=== PATIENT | female | born 1970 | race American Indian/Alaskan Native ===

== ENCOUNTER 2019-03-14 07:56 | Inpatient (IN) | payer SELFPAY ==
[2019-03-14] MEDS ORDERED: NORMODYNE IV ONE (08:24)
--- NOTE | 2019-03-14 08:59 | XRay Report ---
CHEST 1 VIEW INDICATION: Chest Pain. COMPARISON: None. FINDINGS: Support devices: None. Heart: Within normal limits. Left ventricular contour. Pulmonary vasculature: Normal. Lungs/Pleura: The lungs are normally expanded and clear. No pleural effusion. Additional findings: Scoliosis and degenerative change in the thoracic spine. IMPRESSION: 1. No acute findings. Signer Name: Raheel Paulino MD Signed: 03/14/2019 8:55 AM Workstation Name: [id number]
[2019-03-14 09:12] LABS: Basophils # (Auto) 0.1 K/mm3 (0.0-0.1); Basophils % (Auto) 0.5 % (0.0-1.8); Eosinophils % (Auto) 0.1 % (0.0-4.3); Hematocrit 39.1 % (30.3-42.9); Hemoglobin 13.5 gm/dl (10.1-14.3); Lymphocytes # (Auto) 1.6 K/mm3 (1.2-5.4); Lymphocytes % (Auto) 14.4 % (13.4-35.0); Mean Corpuscular HGB Conc 35 % (30-34); Mean Corpuscular Volume 86 fl (79-97); Monocytes # (Auto) 0.4 K/mm3 (0.0-0.8); Monocytes % (Auto) 3.5 % (0.0-7.3); Platelet Count 239 K/mm3 (140-440); Red Blood Count 4.57 M/mm3 (3.65-5.03); Red Cell Distribution Width 14.4 % (13.2-15.2)
[2019-03-14 09:27] LABS: Alanine Aminotransferase 15 units/L (7-56); Albumin 3.7 g/dL (3.9-5); BUN/Creatinine Ratio 14; Blood Urea Nitrogen 14 mg/dL (7-17); Calcium 8.6 mg/dL (8.4-10.2); Hemolysis Index 3
[2019-03-14 09:28] LABS: Bilirubin,Direct < 0.2 mg/dL (0-0.2)
[2019-03-14 09:29] LABS: INR 1.12 (0.87-1.13)
[2019-03-14 09:30] LABS: Partial Thromboplastin Time 26.9 Sec. (24.2-36.6)
[2019-03-14 09:38] LABS: HDL Cholesterol 61 mg/dL (40-59); LDL Cholesterol,Direct 78 mg/dL (50-130)
--- NOTE | 2019-03-14 09:51 | Emergency Department Report ---
ED General Adult HPI - General Chief complaint: Dyspnea/Respdistress Stated complaint: SOB/CHEST PAIN Time Seen by Provider: 03/14/19 08:18 Source: patient, EMS Mode of arrival: Stretcher Limitations: No Limitations - History of Present Illness Initial comments: 48-year-old female complains of dyspnea mostly on exertion. She states she occasionally has chest discomfort which does not radiate. She is mostly here because she realizes that her blood pressure is extremely elevated and that she is noncompliant with medication. She has not had any blood pressure medicine available for an unquantified. Of time. She has not seen a doctor also for an unquantified. At time. She denies focal neurological change and headache. She is not actively short of breath at rest on my encounter. She does not complain of chest pain additionally on my encounter. She is actually already requesting discharge on my initial encounter despite her extraordinary uncontrolled hypertension. I initially explained that is probably not likely. -: unknown Location: chest Radiation: non-radiation Severity scale (0 -10): 6 Quality: other (pressure or tightness) Consistency: intermittent, now resolved Improves with: none Worsens with: none Associated Symptoms: denies other symptoms, shortness of breath - Related Data Allergies Allergy/AdvReac Type Severity Reaction Status Date / Time No Known Allergies Allergy Unverified 03/14/19 08:17 ED Review of Systems ROS: Stated complaint: SOB/CHEST PAIN Other details as noted in HPI Constitutional: denies: chills, fever Eyes: denies: eye pain, eye discharge, vision change ENT: denies: ear pain, throat pain Respiratory: shortness of breath. denies: cough, wheezing Cardiovascular: chest pain. denies: palpitations Endocrine: no symptoms reported Gastrointestinal: denies: abdominal pain, nausea, diarrhea Genitourinary: denies: urgency, dysuria, discharge Musculoskeletal: denies: back pain, joint swelling, arthralgia Skin: denies: rash, lesions Neurological: denies: headache, weakness, paresthesias Psychiatric: denies: anxiety, depression Hematological/Lymphatic: denies: easy bleeding, easy bruising ED Past Medical Hx - Past Medical History Hx Hypertension: Yes - Surgical History Past Surgical History?: No - Social History Smoking Status: Never Smoker Substance Use Type: Alcohol ED Physical Exam - General Limitations: No Limitations General appearance: alert, in no apparent distress - Head Head exam: Present: atraumatic, normocephalic - Eye Eye exam: Present: normal appearance. Absent: scleral icterus - ENT ENT exam: Present: mucous membranes moist - Neck Neck exam: Present: normal inspection - Respiratory Respiratory exam: Present: normal lung sounds bilaterally. Absent: respiratory distress - Cardiovascular Cardiovascular Exam: Present: regular rate, normal rhythm. Absent: systolic murmur, diastolic murmur, rubs, gallop - GI/Abdominal GI/Abdominal exam: Present: soft, normal bowel sounds. Absent: distended, tenderness, guarding, rebound - Extremities Exam Extremities exam: Present: normal inspection, pedal edema (trace and trace pretibial). Absent: calf tenderness - Back Exam Back exam: Present: normal inspection - Neurological Exam Neurological exam: Present: alert, oriented X3, CN II-XII intact. Absent: motor sensory deficit - Psychiatric Psychiatric exam: Present: normal affect, normal mood - Skin Skin exam: Present: warm, dry, intact, normal color. Absent: rash ED Course Vital Signs 03/14/19 03/14/19 03/14/19 08:21 08:32 09:58 Temperature 98.5 F Pulse Rate 143 H 143 H Respiratory 20 20 Rate Blood Pressure 197/125 197/125 Blood Pressure 197/125 [Left] O2 Sat by Pulse 95 96 Oximetry - Reevaluation(s) Reevaluation #1: She had persistent requests for discharge. She really did not respond to labetalol at all. She was started on Cardene. The need for admission was explained. Finally she agreed. She was admitted to the hospitalist service. 03/14/19 10:38 ED Medical Decision Making - Lab Data Result diagrams: 03/14/19 08:35 03/14/19 08:35 Laboratory Results - last 24 hr 03/14/19 03/14/19 03/14/19 08:35 08:35 08:35 WBC 11.4 H RBC 4.57 Hgb 13.5 Hct 39.1 MCV 86 MCH 30 MCHC 35 H RDW 14.4 Plt Count 239 Lymph % (Auto) 14.4 [place] % (Auto) 3.5 Eos % (Auto) 0.1 Baso % (Auto) 0.5 Lymph # 1.6 [place] # 0.4 Eos # 0.0 Baso # 0.1 Seg Neutrophils % 81.5 H Seg Neutrophils # 9.3 H PT 14.1 INR 1.12 APTT 26.9 Sodium 138 Potassium 3.4 L Chloride 100.9 Carbon Dioxide 20 L Anion Gap 21 BUN 14 Creatinine 1.0 Estimated GFR > 60 BUN/Creatinine Ratio 14 Glucose 186 H Calcium 8.6 Total Bilirubin 0.40 Direct Bilirubin < 0.2 Indirect Bilirubin 0.2 AST 18 ALT 15 Alkaline Phosphatase 48 Troponin T 0.043 H Total Protein 8.6 H Albumin 3.7 L Albumin/Globulin Ratio 0.8 Triglycerides 142 Cholesterol 153 LDL Cholesterol Direct 78 HDL Cholesterol 61 H Cholesterol/HDL Ratio 2.50 - EKG Data -: EKG Interpreted by Me EKG shows normal: sinus rhythm, axis, intervals, QRS complexes Rate: normal - EKG Data Interpretation: nonspecific ST-T wave gabriela, other (for lateral T-wave inversion, somewhat prolonged QT) - Radiology Data Radiology results: report reviewed (no acute findings) Critical Care Time: Yes Critical care time in (mins) excluding proc time.: 40 Critical care attestation.: If time is entered above; I have spent that time in minutes in the direct care of this critically ill patient, excluding procedure time. ED Disposition Clinical Impression: Malignant hypertension Hyperglycemia due to type 2 diabetes mellitus Qualifiers: Diabetes mellitus residential insulin use: without residential use Qualified Code(s): E11.65 - Type 2 diabetes mellitus with hyperglycemia Disposition: DC-09 OP ADMIT IP TO THIS HOSP Is pt being admited?: Yes Does the pt Need Aspirin: Yes Condition: Stable Instructions: Hypertension (ED), Diabetes Mellitus Type 2 in Adults (ED) Time of Disposition: 10:41
[2019-03-14] MEDS ORDERED: CARDENE 50 MG in NACL 0.9% 250ML 230 ML IV SCH (10:00)
[2019-03-14] MEDS ORDERED: APRESOLINE IV PRN ×2 (10:15→11:27)
[2019-03-14] MEDS ORDERED: MORPHINE IV PRN (10:16)
[2019-03-14] MEDS ORDERED: SODIUM CHLORIDE FLUSH SYRINGE 10 ML IV PRN (10:16)
[2019-03-14] MEDS ORDERED: TYLENOL PO PRN (10:16)
[2019-03-14] MEDS ORDERED: ZOFRAN IV PRN (10:16)
--- NOTE | 2019-03-14 10:21 | History and Physical Report ---
History of Present Illness Chief complaint: Shortness of breath History of present illness: 48-year-old woman who presents to the hospital complaining of Shortness of breath. It is associated with palpitations. She had it at rest while in bed, she denies orthopnea, denies PND. States that she has mild pedal edema. She denies chest pain. Denies cough or sputum production. Admits that she has a history of hypertension, she just did not want to be on meds and hasn't taken meds for over a year, hasn't seen a doctor for over a year does not have insurance. Past medical history; hypertension Past surgical history; lap bird and umbilicus hernia repair Social history, denies Tobacco alcohol or illicit drug abuse. Medications and Allergies Allergies Allergy/AdvReac Type Severity Reaction Status Date / Time No Known Allergies Allergy Unverified 03/14/19 08:17 Active Meds: Active Medications Acetaminophen (Tylenol) 650 mg PO Q4H PRN PRN Reason: Pain MILD(1-3)/Fever >100.5/VASQUEZ Enoxaparin Sodium (Lovenox) 40 mg SUB-Q QDAY JANICE Hydralazine HCl (Apresoline) 10 mg IV Q4HR PRN PRN Reason: BP >160/100 Nicardipine HCl 50 mg/ Sodium (Chloride) 250 mls @ 25 mls/hr IV TITR JANICE; Protocol Last Admin: 03/14/19 10:07 Dose: 5 mg/hr, 25 mls/hr Documented by: Morphine Sulfate (Morphine) 2 mg IV Q4H PRN PRN Reason: Pain, Moderate (4-6) Nifedipine (Procardia Xl) 60 mg PO Q12HR JANICE Ondansetron HCl (Zofran) 4 mg IV Q8H PRN PRN Reason: Nausea And Vomiting Potassium Chloride (K-Dur) 40 meq PO ONCE ONE Stop: 03/14/19 10:16 Sodium Chloride (Sodium Chloride Flush Syringe 10 Ml) 10 ml IV BID JANICE Sodium Chloride (Sodium Chloride Flush Syringe 10 Ml) 10 ml IV PRN PRN PRN Reason: LINE FLUSH Review of Systems All systems: negative Constitutional: no weight loss, no fatigue Ears, nose, mouth and throat: no ear pain Cardiovascular: palpitations, edema, no chest pain, no orthopnea, no rapid/irregular heart beat Respiratory: no cough Gastrointestinal: no abdominal pain Rectal: no pain Musculoskeletal: no neck stiffness Integumentary: no rash Neurological: no head injury Psychiatric: no anxiety Endocrine: no cold intolerance Hematologic/Lymphatic: no easy bruising Allergic/Immunologic: no urticaria Exam - Constitutional Vitals: Temp Pulse Resp BP Pulse Ox 98.5 F 143 H 20 197/125 96 03/14/19 08:21 03/14/19 08:32 03/14/19 09:58 03/14/19 08:32 03/14/19 09:58 General appearance: Present: no acute distress, well-nourished - EENT Eyes: Present: PERRL ENT: hearing intact, clear oral mucosa - Neck Neck: Present: supple, normal ROM - Respiratory Respiratory effort: normal Respiratory: bilateral: CTA - Cardiovascular Heart Sounds: Present: S1 & S2. Absent: rub, click - Extremities Extremities: pulses symmetrical, No edema Peripheral Pulses: within normal limits - Abdominal General gastrointestinal: Present: soft, non-tender, non-distended, normal bowel sounds Female genitourinary: Present: normal - Integumentary Integumentary: Present: clear, warm, dry - Musculoskeletal Musculoskeletal: gait normal, strength equal bilaterally - Psychiatric Psychiatric: appropriate mood/affect, intact judgment & insight - Neurologic Neurologic: CNII-XII intact, moves all extremities Results - Labs CBC & Chem 7: 03/14/19 08:35 03/14/19 08:35 Labs: Laboratory Last Values WBC 11.4 K/mm3 (4.5-11.0) H 03/14/19 08:35 RBC 4.57 M/mm3 (3.65-5.03) 03/14/19 08:35 Hgb 13.5 gm/dl (10.1-14.3) 03/14/19 08:35 Hct 39.1 % (30.3-42.9) 03/14/19 08:35 MCV 86 fl (79-97) 03/14/19 08:35 MCH 30 pg (28-32) 03/14/19 08:35 MCHC 35 % (30-34) H 03/14/19 08:35 RDW 14.4 % (13.2-15.2) 03/14/19 08:35 Plt Count 239 K/mm3 (140-440) 03/14/19 08:35 Lymph % (Auto) 14.4 % (13.4-35.0) 03/14/19 08:35 [place] % (Auto) 3.5 % (0.0-7.3) 03/14/19 08:35 Eos % (Auto) 0.1 % (0.0-4.3) 03/14/19 08:35 Baso % (Auto) 0.5 % (0.0-1.8) 03/14/19 08:35 Lymph # 1.6 K/mm3 (1.2-5.4) 03/14/19 08:35 [place] # 0.4 K/mm3 (0.0-0.8) 03/14/19 08:35 Eos # 0.0 K/mm3 (0.0-0.4) 03/14/19 08:35 Baso # 0.1 K/mm3 (0.0-0.1) 03/14/19 08:35 Seg Neutrophils % 81.5 % (40.0-70.0) H 03/14/19 08:35 Seg Neutrophils # 9.3 K/mm3 (1.8-7.7) H 03/14/19 08:35 PT 14.1 Sec. (12.2-14.9) 03/14/19 08:35 INR 1.12 (0.87-1.13) 03/14/19 08:35 APTT 26.9 Sec. (24.2-36.6) 03/14/19 08:35 Sodium 138 mmol/L (137-145) 03/14/19 08:35 Potassium 3.4 mmol/L (3.6-5.0) L 03/14/19 08:35 Chloride 100.9 mmol/L (98-107) 03/14/19 08:35 Carbon Dioxide 20 mmol/L (22-30) L 03/14/19 08:35 Anion Gap 21 mmol/L 03/14/19 08:35 BUN 14 mg/dL (7-17) 03/14/19 08:35 Creatinine 1.0 mg/dL (0.7-1.2) 03/14/19 08:35 Estimated GFR > 60 ml/min 03/14/19 08:35 BUN/Creatinine Ratio 14 % 03/14/19 08:35 Glucose 186 mg/dL (65-100) H 03/14/19 08:35 Calcium 8.6 mg/dL (8.4-10.2) 03/14/19 08:35 Total Bilirubin 0.40 mg/dL (0.1-1.2) 03/14/19 08:35 Direct Bilirubin < 0.2 mg/dL (0-0.2) 03/14/19 08:35 Indirect Bilirubin 0.2 mg/dL 03/14/19 08:35 AST 18 units/L (5-40) 03/14/19 08:35 ALT 15 units/L (7-56) 03/14/19 08:35 Alkaline Phosphatase 48 units/L (35-129) 03/14/19 08:35 Troponin T 0.043 ng/mL (0.00-0.029) H 03/14/19 08:35 Total Protein 8.6 g/dL (6.3-8.2) H 03/14/19 08:35 Albumin 3.7 g/dL (3.9-5) L 03/14/19 08:35 Albumin/Globulin Ratio 0.8 % 03/14/19 08:35 Triglycerides 142 mg/dL (2-149) 03/14/19 08:35 Cholesterol 153 mg/dL (50-199) 03/14/19 08:35 LDL Cholesterol Direct 78 mg/dL (50-130) 03/14/19 08:35 HDL Cholesterol 61 mg/dL (40-59) H 03/14/19 08:35 Cholesterol/HDL Ratio 2.50 % 03/14/19 08:35 - Imaging and Cardiology EKG: image reviewed (sinus tachy) Chest x-ray: image reviewed (No acute findings) Assessment and Plan Assessment and plan: 48-year-old woman admitted for hypertensive emergency Labs show white count 11.4, potassium 3.4, glucose 186 Chest x-ray no acute findings Hypertensive emergency Currently on Cardene drip, continue Cardene drip we will start oral medications with goal of weaning off the drip Hypokalemia Replete, check magnesium Sirs No evidence of infection at this time, obtain UA Hyperglycemia, no history of diabetes, obtain A1c sinus tachycardia check tsh mild pedal edema echo, check tsh, give one dose of lasix DVT prophylaxis; Lovenox and early ambulation VTE prophylaxis?: Chemical Plan of care discussed with patient/family: Yes
[2019-03-14] MEDS ORDERED: BABY ASPIRIN PO ONE (10:47)
[2019-03-14] MEDS ORDERED: ZESTRIL ONE (10:58)
[2019-03-14] MEDS ORDERED: ZESTRIL PO SCH (11:00)
[2019-03-14] MEDS ORDERED: DIOVAN PO SCH (11:00)
[2019-03-14 11:02] LABS: BUN/Creatinine Ratio 13; Blood Urea Nitrogen 13 mg/dL (7-17); Calcium 8.6 mg/dL (8.4-10.2); Hemolysis Index 3
[2019-03-14] MEDS ORDERED: LASIX IV ONE (11:24)
[2019-03-14] MEDS ORDERED: APRESOLINE ONE (11:55)
[2019-03-14] MEDS ORDERED: K-DUR PO ONE (12:00)
[2019-03-14] MEDS ORDERED: PROCARDIA XL PO SCH (12:00)
[2019-03-14] MEDS ORDERED: NACL 0.9% 1000 ML 1,000 ML ONE ×3 (12:26→16:07)
[2019-03-14] MEDS ORDERED: ZOFRAN ONE (12:35)
[2019-03-14] MEDS ORDERED: MORPHINE IV ONE ×2 (13:00)
[2019-03-14] MEDS ORDERED: MORPHINE ONE (13:04)
[2019-03-14] MEDS ORDERED: ATIVAN IV PRN (13:11)
[2019-03-14] MEDS ORDERED: LOVENOX SUB-Q SCH ×2 (14:00)
[2019-03-14] MEDS ORDERED: NACL 0.9% 1000 ML 2,000 ML ONE ×2 (14:01→17:19)
[2019-03-14] MEDS ORDERED: HEPARIN/ 0.45% NACL-25,000 UNIT/500 ML 25,000 UNIT/500 ML BAG ONE (14:13)
[2019-03-14] MEDS ORDERED: SUBLIMAZE IV PRN (14:22)
[2019-03-14] MEDS ORDERED: ARTIFICIAL TEARS OPHTH OINT OU PRN (14:22)
[2019-03-14] MEDS ORDERED: VERSED IV PRN (14:22)
[2019-03-14] MEDS ORDERED: VASELINE LIP THERAPY TP PRN (14:22)
--- NOTE | 2019-03-14 14:26 | Event Note ---
Date: 03/14/19 38-year-old female who I previously had admitted to the hospitalist service on a Cardene drip. This was set to a conservative target of 165 systolic. This was several hours ago; I have not had any further involvement with the care of the patient. Indeed, I have been occupied with other critical care patients. I was called into the room to assist in resuscitative efforts on this patient by nursing staff. 2 other physicians had begun the process initially. I found the patient to the apneic. We began Ambu bag assist and chest compressions. Cardiac monitors showed complexes at about 30. I requested the nurses to give 0.5 of epinephrine while I prepared for intubation. Resuscitation continued while I performed direct laryngoscopy. This was done quickly using a Mac 4 curved blade. A 7.5 Serbian endotracheal tube was immediately placed without difficulty and secured at the 22 cm marsha. The patient's ventilation continued. She was noted to have an improving heart rate. I then inserted and EJ line into her left neck. We gave the patient an additional 1 mg of epinephrine and then resulting in a much improved heart rate and a palpable pulse. A central line insertion was performed by Dr. Dunn in the right femoral region. Patient's admitting physician presented to the bedside. She was noted to be hypertensive at this point. Further management of the patient is deferred to the hospitalist staff. Patient was noted to have spontaneous respirations. Resuscitative events were explained to the patient's family. Nursing requested sedation orders as the patient became agitated. They were directed to give Rocuronium and then a sedation drip depending on the patient's current blood pressure.
[2019-03-14] MEDS ORDERED: LOVENOX SUB-Q ONE (14:30)
[2019-03-14] MEDS ORDERED: HEPARIN IV ONE (14:30)
[2019-03-14] MEDS ORDERED: HEPARIN ONE (14:34)
[2019-03-14] MEDS ORDERED: MIDAZOLAM 100 MG in NACL 0.9% 80 ML IV SCH (15:00)
[2019-03-14] MEDS ORDERED: fentaNYL DRIP Premix 2,000 MCG/100 ML BAG IV SCH (15:00)
[2019-03-14] MEDS ORDERED: NACL 0.9% 1000 ML 1,000 ML IV ONE (15:10)
[2019-03-14] MEDS ORDERED: ZEMURON IV ONE ×2 (15:18→16:16)
--- NOTE | 2019-03-14 15:20 | Cat Scan Report ---
CT HEAD WITHOUT CONTRAST INDICATION / CLINICAL INFORMATION: AMS. Respiratory failure. Intubated patient. TECHNIQUE: All CT scans at this location are performed using CT dose reduction for ALARA by means of automated e xposure control. COMPARISON: None available. FINDINGS: HEMORRHAGE: No evidence of intracranial hemorrhage or extra-axial fluid collection. EXTRA-AXIAL SPACES: Cortical sulci, sylvian fissures and basilar cisterns have an unremarkable appear ance. VENTRICULAR SYSTEM: The ventricular system is of normal size and configuration. CEREBRAL PARENCHYMA: No areas of abnormal brain parenchymal attenuation are identified. There is no i ndication of recent infarction. MIDLINE SHIFT OR HERNIATION: There is no mass effect. CEREBELLUM / BRAINSTEM: Brainstem and cerebellum have an unremarkable appearance. INTRACRANIAL VESSELS:No abnormalities are identified on this noncontrast head CT. ORBITS: visualized portions of the orbits have an unremarkable appearance. SOFT TISSUES of HEAD: No significant abnormality. CALVARIUM: Evaluation of bone windows reveals no abnormalities. PARANASAL SINUSES / MASTOID AIR CELLS: Paranasal sinuses are free from inflammatory mucosal disease. Mastoid air cells are normally pneumatized. IMPRESSION: 1. No acute intracranial abnormality. Signer Name: Gato Garrett MD Signed: 03/14/2019 3:16 PM Workstation Name: [id number]
--- NOTE | 2019-03-14 15:26 | Cat Scan Report ---
CTA CHEST WITH CONTRAST INDICATION : Shortness of breath, unresponsive. TECHNIQUE: Axial imaging performed through the chest, with contrast bolus timing set to maximize opa cification of the pulmonary arteries. Sagittal and coronal reformatted images. 3-plane MIP reformatte d images were obtained. All CT scans at this location are performed using CT dose reduction for ALAR A by means of automated exposure control. 100 mL of intravenous contrast administered. COMPARISON: None FINDINGS: Bolus: Contrast bolus timing is adequate. PTE: A moderate to large saddle embolus is identified extending to both lower lobes and left upper l obe. Mediastinum: Mild cardiomegaly. No pericardial effusion. The tracheobronchial tree, esophagus and m ediastinal vessels are unremarkable. An endotracheal tube and nasogastric tube are in place. No media stinal mass or adenopathy. Lungs: Mild atelectatic changes are identified in the left lower lobe. Otherwise, the lungs are jose r. No pleural effusion or pneumothorax. Bones: Intact. Mild scoliosis. Upper abdomen: Limited imaging of the upper abdomen shows nothing acute. IMPRESSION: Positive for saddle pulmonary embolus as described. Mild cardiomegaly. These findings were discussed with Dr. Dunn in the emergency department at 1521 hours EST. Signer Name: Dannie Whitman Jr, MD Signed: 03/14/2019 3:22 PM Workstation Name: [id number]
[2019-03-14] MEDS ORDERED: HEPARIN 10,000 UNITS/10 ML IV ONE (15:27)
[2019-03-14] MEDS: HEPARIN/ 0.45% NACL-25,000 UNIT/500 ML 25,000 UNIT/500 ML BAG IV SCH ×2 (15:35→16:04)
[2019-03-14] MEDS: ADRENALIN 8 MG in NACL 0.9% 250ML 242 ML IV SCH ×2 (15:40→16:04)
[2019-03-14] MEDS ORDERED: HEPARIN/NS 5000 UNIT/500ML(CATH LAB) 1,000 ML IR ONE (16:15)
[2019-03-14] MEDS ORDERED: HEPARIN 10,000 UNITS/10 ML ONE (16:15)
[2019-03-14] MEDS ORDERED: INTROPIN DRIP 800 MG/D5W 250 ML IV ONE (16:16)
[2019-03-14] MEDS ORDERED: ADRENALIN ONE (16:16)
[2019-03-14] MEDS ORDERED: ATROPINE 0.1% (CARDIAC) ONE ×2 (16:16→17:28)
[2019-03-14] MEDS: XYLOCAINE 2% INFILTRATI ONE ×2 (16:20→16:24)
[2019-03-14] MEDS ORDERED: WATER FOR INJ Sterile (PF) 10 ML ONE (17:00)
[2019-03-14] MEDS ORDERED: CATHFLO ONE (17:00)
[2019-03-14] MEDS ORDERED: HEPARIN/NS 5000 UNIT/500ML(CATH LAB) 500 ML IR ONE (17:06)
--- NOTE | 2019-03-14 17:28 | Consultation ---
History of Present Illness - Reason for Consult Consult date: 03/14/19 massive pulmonary embolism - History of Present Illness Patient presents with a history of worsening shortness of breath and uncontrolled hypertension. While in the ER, the patient became apneic. Patient was intubated and a CT scan performed which demonstrates a saddle pulmonary embolus. Following resuscitation efforts, assessment of the patient demonstrate intermittent bradycardia requiring codes. Medications and Allergies Allergies Allergy/AdvReac Type Severity Reaction Status Date / Time No Known Allergies Allergy Unverified 03/14/19 08:17 Home Medications Medication Instructions Recorded Confirmed Last Taken Type No Known Home Medications [No 03/14/19 03/14/19 Unknown History Reported Home Medications] Active Meds: Active Medications Acetaminophen (Tylenol) 650 mg PO Q4H PRN PRN Reason: Pain MILD(1-3)/Fever >100.5/VASQUEZ Fentanyl (Sublimaze) 50 mcg IV Q10MIN PRN PRN Reason: ANALGESIA Hydrophilic Ointment (Vaseline Lip Therapy) 1 applic TP Q2HR PRN PRN Reason: Dry Lips Fentanyl Citrate (Fentanyl Drip Premix) 2,000 mcg in 100 mls @ 6.35 mls/hr IV TITR JANICE; Protocol Midazolam HCl 100 mg/ Sodium (Chloride) 100 mls @ 2 mls/hr IV TITR JANICE; Protocol Heparin Sodium/Sodium Chloride (Heparin/ 0.45% Nacl-25,000 Unit/500 Ml) 25,000 unit in 500 mls @ 30 mls/hr IV TITR JANICE; Protocol Epinephrine 8 mg/ Sodium (Chloride) 250 mls @ 3.75 mls/hr IV TITR JANICE; Protocol Lorazepam (Ativan) 1 mg IV Q4H PRN PRN Reason: sob or anxiety Midazolam HCl (Versed) 2 mg IV Q10MIN PRN PRN Reason: Sedation Morphine Sulfate (Morphine) 2 mg IV Q4H PRN PRN Reason: Pain, Moderate (4-6) Multi-Ingred Cream/Lotion/Oil/Oint (Artificial Tears Ophth Oint) 1 applic OU Q4HR PRN PRN Reason: Dry Eye(s) Nifedipine (Procardia Xl) 60 mg PO Q12HR JANICE Ondansetron HCl (Zofran) 4 mg IV Q8H PRN PRN Reason: Nausea And Vomiting Sodium Chloride (Sodium Chloride Flush Syringe 10 Ml) 10 ml IV BID JANICE Sodium Chloride (Sodium Chloride Flush Syringe 10 Ml) 10 ml IV PRN PRN PRN Reason: LINE FLUSH Review of Systems ROS unobtainable: due to endotracheal tube Exam - Constitutional Vitals: Temp Pulse Resp BP Pulse Ox 98.5 F 134 H 20 166/104 89 03/14/19 08:21 03/14/19 14:28 03/14/19 09:58 03/14/19 11:01 03/14/19 14:28 General appearance: Present: severe distress, obese Results - Labs CBC & Chem 7: 03/14/19 08:35 03/14/19 08:35 Labs: Abnormal lab results 03/14/19 03/14/19 03/14/19 Range/Units 08:35 08:35 08:35 WBC 11.4 H (4.5-11.0) K/mm3 MCHC 35 H (30-34) % Seg Neutrophils % 81.5 H (40.0-70.0) % Seg Neutrophils # 9.3 H (1.8-7.7) K/mm3 Potassium 3.4 L 3.4 L (3.6-5.0) mmol/L Carbon Dioxide 20 L 18 L (22-30) mmol/L Glucose 186 H 182 H (65-100) mg/dL POC Glucose (70-105) Troponin T 0.043 H (0.00-0.029) ng/mL Total Protein 8.6 H (6.3-8.2) g/dL Albumin 3.7 L (3.9-5) g/dL HDL Cholesterol 61 H (40-59) mg/dL 03/14/19 Range/Units 14:07 WBC (4.5-11.0) K/mm3 MCHC (30-34) % Seg Neutrophils % (40.0-70.0) % Seg Neutrophils # (1.8-7.7) K/mm3 Potassium (3.6-5.0) mmol/L Carbon Dioxide (22-30) mmol/L Glucose (65-100) mg/dL POC Glucose 331 H (70-105) Troponin T (0.00-0.029) ng/mL Total Protein (6.3-8.2) g/dL Albumin (3.9-5) g/dL HDL Cholesterol (40-59) mg/dL - Imaging and Cardiology CT scan - chest: report reviewed, image reviewed Assessment and Plan Patient will be scheduled for emergency transport to the cardiac [facility] [employer] for pulmonary embolectomy
--- NOTE | 2019-03-14 17:59 | Operative Report ---
Operative Report Operative Report: Exam: Pulmonary embolectomy Clinical indication: Patient with a history of massive pulmonary embolism with hemodynamic instability and right heart failure Date: 03/14/2019 Procedure: Following an excellent omission of the risks, benefits and alternatives; written informed consent was obtained from the patient's daughter. The patient was brought to the angiographic suite emergently and placed on the examination table in supine position. Initial ultrasound evaluation of right groin demonstrated a patent right common femoral vein. The patient's right groin was prepped and draped in the usual sterile fashion. 1% lidocaine was used for anesthesia. Under ultrasound guidance, the right common femoral vein was cannulated with a 7 cm 18-gauge needle. A 0.035 guidewire was advanced centrally. The needle was removed and a 6 Burkinan sheath placed over the guidewire. An angled pigtail was then advanced over the guidewire together guidewire catheter advanced to the right atrium. The guidewire was retracted into the catheter and the catheter manipulated into the right main pulmonary artery. The guidewire would not advanced distally past the occlusive thrombus. The brachial catheter was exchanged for a vertebral catheter in the vertebral catheter advanced to the margin of the occlusive thrombus in the right mainstem pulmonary artery. Contrast was injected which demonstrates occlusion of the right pulmonary artery. The guidewire was in exchange for an Amplatz superstiff guidewire. Following serial dilation over the guidewire, a 22 Burkinan dry cereal sheath was advanced over the guidewire to the IVC. And an artery catheter and trocar was then advanced over the guidewire and manipulated through the heart into the right pulmonary artery just proximal to the thrombus. The trocar was removed. Aspiration was then performed 4 times for 60-75 seconds each time. A large volume of thrombus was aspirated from the catheter. The catheter was then removed at the guidewire and flushed. The catheter and trocar were then again advanced into the right main pulmonary artery and angiography performed. This demonstrates near-complete resolution of thrombus. The catheter was withdrawn proximally into the pulmonary outflow tract and angiography performed. There is contrast opacification of the left upper and lower lobe pulmonary arteries. 10 mg of t-PA was then injected into the pulmonary outflow tract. The thrombectomy catheter was then withdrawn proximally over the guidewire under fluoroscopy. The catheter and sheath were then removed a 15 Burkinan dialysis catheter to position the tip in the IVC. The guidewire was removed and a pursestring suture placed around the catheter exit site. A pressure dressing was then applied. Prior to the procedure, the patient coded approximately 12 times in the emergency department. During the procedure, the patient coded an additional 2 times she became bradycardic and pulseless. She responded each time to atropine and epinephrine. Continuous cardiopulmonary monitoring was utilized throughout the procedure. Sedation was not utilized. Impression: 1) Pulmonary angiography demonstrating a massive pulmonary embolism with occlusion of the right main pulmonary artery secondary to saddle embolus 2) Pulmonary embolectomy within an Innari embolectomy device with only minimal residual thrombus and opacification of the right pulmonary arteries.3) t-PA injection into the main pulmonary artery.
[2019-03-14] MEDS ORDERED: INTROPIN DRIP 800 MG/D5W 250 ML 800 MG/250 ML BAG IV SCH (18:30)
[2019-03-14] MEDS ORDERED: LEVOPHED DRIP 4 MG/NS 250 ML 4 MG/250 ML BAG IV ONE (18:59)
--- NOTE | 2019-03-14 19:26 | XRay Report ---
CHEST 1 VIEW INDICATION / CLINICAL INFORMATION: ETT placement. COMPARISON: 03/14/2019 8:26 AM FINDINGS: SUPPORT DEVICES: Endotracheal tube tip is in the midthoracic trachea in the usual position. Enteric t ube enters the stomach, with the tip outside the [id number]. HEART / MEDIASTINUM: Stable. LUNGS / PLEURA: No significant pulmonary or pleural abnormality appreciated within limitations of a s emiupright portable exam. No pneumothorax. ADDITIONAL FINDINGS: No significant additional findings. IMPRESSION: 1. Satisfactory position of endotracheal and enteric tubes. Otherwise, no significant change allowing for semiupright positioning, AP technique and slight patient rotation. Signer Name: Uriah Morales MD Signed: 03/14/2019 7:22 PM Workstation Name: [id number]
[2019-03-14] MEDS ORDERED: LEVOPHED DRIP 4 MG/NS 250 ML 4 MG/250 ML BAG IV SCH (20:00)
--- NOTE | 2019-03-14 20:21 | Death Note ---
Note Date of : 03/14/19 Time of : 20:17 - Preliminary Cause of (problem) (1) Anoxic brain injury Preliminary cause of (2) Acute respiratory failure Preliminary cause of
--- NOTE | 2019-03-14 20:21 | Event Note ---
Date: 03/14/19 Responded to Code blue in ED Room 19. Pt treated IAW ACLS protocol with return of perfusing cardiac rhythm. Pt was suspected to have PE, but was unstable for transfer to CT Scan for evaluation. Pt initiated on therapeutic anticoagulation in ED. Pt coded 12 times prior to being transferred to CT scan. I accompanied patient and it desktop support specialist to CT scan for Stat imaging and remained for the duration of the imaging studies. Pt coded 3 additional times while in CT scan. Pt was able to undergo CT Head, and CTA chest. Pt was found to have large saddle Pulmonary Embolism with evidence of Right sided heart strain on bedside echo. Interventional Radiology team consulted, and subsequently reviewed CTA chest. Pt family informed of poor prognosis, as well as evidence of MARK ANTHONY. Pt family acknowledged understanding poor prognosis, and elects to attempt aggressive care. Pt taken urgently to laboratory animal facility supervisor for intervention EKOS/Clot Extraction. I accompanied patient to the pipelines laborer, and remained in the laboratory animal facility supervisor with the patient for the entire procedure. Pt clot burden was successfully removed from the Left and Right Pulmonary arteries during a prolonged and heroic procedure. Pt also coded 2 times while undergoing procedure. After procedure completed, patient transported to ICU. Pt coded 5 additional times in ICU. Pt found to have Asystolic arrest, as well as evidence of MARK ANTHONY. Pt family request no further care, and elects to make patient AND/DNR. Pt pronounced at 2017hrs. Director Cardiac support notified. 240 minutes dedicated to bedside patient care.
[2019-03-14] MEDS ORDERED: SODIUM CHLORIDE FLUSH SYRINGE 10 ML IV SCH (22:00)
[2019-03-14 23:41] VITALS: BP 59/38
--- NOTE | 2019-03-15 07:05 | Death Summary ---
Summary - Providers Consults: 03/14/19 Consult to Cardiac Rehabilitation [CONS] Routine Reason For Exam: Phase I 03/14/19 14:22 Consult to Dietitian/Nutrition [CONS] Routine Physician Instructions: Reason For Exam: Reason for Consult: Evaluate nutritional intake Consult to Physician [CONS] Routine Comment: Consulting Provider: MEGAN PEACE Physician Instructions: Reason For Exam: icu care 03/14/19 15:33 Consult to Physician [CONS] Routine Comment: Consulting Provider: ИРИНА SAMANIEGO Physician Instructions: Reason For Exam: saddle PE Attending: JIA MARTINEZ MD - summary Date of admission: 03/14/19 10:16 Date of : 03/14/19 Significant findings: 48-year-old woman with history of hypertension who admitted that she had not seen a doctor in over 18 months. Had self stopped all her medications because she did not want to be on them. She presented to the hospital complaining of mild shortness of breath x1 day. -She was noted to have hypertensive emergency. She was started on Cardene drip. She was also started on p.o. meds with a goal of weaning off the Cardene drip. -Unfortunately patient then developed severe shortness of breath. Pulmonary embolism was suspected, she was started on blood thinners and CTA was pending. Unfortunately patient then had a cardiac arrest. She had CPR and had ROSC. She arrested a second time had CPR and had ROSC again after which she was taken to radiology, CT angiogram confirmed saddle PE. She was then taken to the Clinical Consultant and had thrombectomy performed by vascular surgery. The patient arrested numerous times during his hospital stay, despite thrombectomy and TPA injection in her pulmonary arteries, the patient continued to get worse. She was noted to have encephalopathy with balloon pupils that she was not responsive. She was taken to the ICU and was continued on aggressive management. Despite aggressive management and CPR which was performed more than 12 times the patient unfortunately . Diagnosis Cardiac arrest secondary to acute saddle PE Hypertensive emergency Hypokalemia SIRS, no evidence of infection
[2019-03-15] MEDS ORDERED: LOVENOX SUB-Q SCH (10:00)
--- NOTE | 2019-03-15 11:47 | Procedure Note ---
Date of procedure: 03/14/19 Pre-op diagnosis: Respiratory Failure, Cardiac Arrest, MARK ANTHONY Post-op diagnosis: same Procedure: Right Femoral Vein Central line placement, Ultrasound Guidance The patient was prepped and draped in the usual sterile fashion. timeout taken to verify correct patient, procedure, and operative site. Ultrasound used to localize the Right femoral vein without difficulty. Local anesthesia with lidocaine. The seldinger technique was utilized to access the Right femoral vein with a seeker needle. A scalpel used to incise the skin, and the seeker needle remove, and a dilatory was passed over the guidewire into the RFV. The dilator was removed, and a pre flushed triple lumen catheter advanced into the right femoral vein and the guidewire was removed. A biopatch was placed at the insertion site, and the triple lumen catheter was sewn in place. All 3 ports flush and draw with ease. Complications: None EBL: Minimal Anesthesia: local Surgeon: TANI CASTLE Estimated blood loss: minimal Pathology: none Condition: critical Disposition: ICU
--- NOTE | 2019-03-15 12:28 | Event Note ---
Date: 03/14/19 Was called back to evaluate the patient for shortness of breath. Of note patient was tachypneic. Saturation was 94% on nasal cannula. The patient expressed restlessness and felt that she just could not catch her breath. On exam lungs were clear. Highly suspect PE, started full dose Lovenox and CTA chest was ordered. This was discussed with the patient and her family members at the bedside.
--- NOTE | 2019-03-15 12:31 | Event Note ---
Came to the bedside after patient had been found to be pulseless. Apparently she had bradycardia followed by pulselessness. S; patient had worsening shortness of breath, then became bradycardic and then had pulselessness. Has not had a pulse after CPR. O;on exam patient is unresponsive status post CPR, she is breathing over the vent. Does not move her extremities. Assessment and plan Acute hypoxic respiratory failure, status post cardiac arrest -Status post CPR, patient not intubated. Continue mechanical ventilator, fentanyl and Versed ordered. Highly suspect PE Heparin drip started, CTA chest ordered, patient was stable to go for CTA at this time. We will continue to monitor the patient and as she stabilizes we will send her for CT of her chest to confirm suspected PE. Prognosis is guarded, this was discussed with her family at the bedside. Critical care time; 35 minutes
== END 2019-03-14 20:30 | DRG 163 ==
LOC: ED 07:56 → 4A 10:16 → CC1 14:43
PROVIDERS: ADMIT Internal Medicine; ATTEND Internal Medicine
PROC: 02CQ3ZZ Extirpation of Matter from Right Pulmonary Artery, Percutaneous Approach (ICD-10-PCS; principal; 2019-03-14)
PROC: B31U1ZZ Fluoroscopy of Pulmonary Trunk using Low Osmolar Contrast (ICD-10-PCS; 2019-03-14)
PROC: 3E06317 Introduction of Other Thrombolytic into Central Artery, Percutaneous Approach (ICD-10-PCS; 2019-03-14)
PROC: 06HY33Z Insertion of Infusion Device into Lower Vein, Percutaneous Approach (ICD-10-PCS; 2019-03-14)
PROC: 5A12012 Performance of Cardiac Output, Single, Manual (ICD-10-PCS; 2019-03-14)
PROC: 5A1935Z Respiratory Ventilation, Less than 24 Consecutive Hours (ICD-10-PCS; 2019-03-14)
PROC: 0BH17EZ Insertion of Endotracheal Airway into Trachea, Via Natural or Artificial Opening (ICD-10-PCS; 2019-03-14)
PROC: B54BZZA Ultrasonography of Right Lower Extremity Veins, Guidance (ICD-10-PCS; 2019-03-14)
PROC: 06H033Z Insertion of Infusion Device into Inferior Vena Cava, Percutaneous Approach (ICD-10-PCS; 2019-03-14)
PROC: 4A033R1 Measurement of Arterial Saturation, Peripheral, Percutaneous Approach (ICD-10-PCS; 2019-03-14)
DX: I26.92 Saddle embolus of pulmonary artery without acute cor pulmonale (principal); J96.01 Acute respiratory failure with hypoxia; I16.1 Hypertensive emergency; R65.10 Systemic inflammatory response syndrome (SIRS) of non-infectious origin without acute organ dysfunction; G93.1 Anoxic brain damage, not elsewhere classified; I10 Essential (primary) hypertension; E11.65 Type 2 diabetes mellitus with hyperglycemia; E87.6 Hypokalemia; I46.9 Cardiac arrest, cause unspecified; I50.810 Right heart failure, unspecified; Z66 Do not resuscitate; Z91.14 Patient's other noncompliance with medication regimen; Z90.49 Acquired absence of other specified parts of digestive tract
CPT/HCPCS: 36014; 36415; 36556; 36600; 37184; 70450; 71045; 71275; 75743; 76937; 77001; 80048; 80061; 80076; 82803; 82962; 83036; 83735; 84484; 85025; 85610; 85730; 92950; 93005; 93010; 94002; 94003; 96374; 96375; G0378; C1752; C1769; C1894; J0171; J0360; J0461; J1265; J1644; J1650; J2270; J2405; J2997; J7030; J7050; Q9967